=== PATIENT | male | born 1995 | race Caucasian/White ===

== ENCOUNTER 2024-06-06 12:39 | Emergency (ER) | payer OTHER ==
[2024-06-06] MEDS ORDERED: HYDROcodone/Acetaminophen 5/325 mg Tablet ONE (13:17)
== END 2024-06-06 20:00 ==
LOC: NAV ERS 12:39
DX: S60.221A Contusion of right hand, initial encounter (principal); E10.9 Type 1 diabetes mellitus without complications; Z79.4 Long term (current) use of insulin; Z87.891 Personal history of nicotine dependence; W23.0XXA Caught, crushed, jammed, or pinched between moving objects, initial encounter; Y93.89 Activity, other specified; Y92.140 Kitchen in prison as the place of occurrence of the external cause
CPT/HCPCS: 99283